=== PATIENT | female | born 1990 | race Caucasian/White ===

== ENCOUNTER 2020-02-08 14:44 | Emergency (ER) | payer OTHER, SELFPAY ==
[~2020-02-08] VITALS: Ht 167.6 cm; Wt 72.6 kg
[2020-02-08 14:53] VITALS: BP 135/89
--- NOTE | 2020-02-08 15:25 | NUR ---
Dr. Nava is evaluating the patient in the tent.
[2020-02-08] MEDS ORDERED: NACL 0.9% 500 ML IV ONE (15:27)
--- NOTE | 2020-02-08 15:28 | NUR ---
Patient transferred to bed 9 for further care. RN evaluating patient at bedside.
--- NOTE | 2020-02-08 15:28 | NUR ---
PT IS BEING TAKEN TO ROOM 9.
[2020-02-08] MEDS ORDERED: ONDANSETRON 4 MG/2 ML VIAL IVP ONE (15:30)
--- NOTE | 2020-02-08 15:30 | NUR ---
29 y/f presents for nonproductive cough x 5 day, c n/v. PT REPORTS WORSENING NAUSEA AFTER MEALS. Pt also reports nasal congestion. DENIES SORE THROAT. Pt denies sob, fever, denies + covid exposure, denies loss of taste or smell pmh- denies rx- denies nkda
--- NOTE | 2020-02-08 15:45 | NUR ---
STAT LABS DRAWN AND GIVEN TO PHLEB.
--- NOTE | 2020-02-08 15:50 | NUR ---
PT TAKEN TO XR VIA WHEELCHAIR.
[2020-02-08 15:59] LABS: BASOPHILS # (AUTO) 0.1 K/uL (0.00-0.22); BASOPHILS % (AUTO) 0.9 % (0.0-2.0); EOSINOPHILS # (AUTO) 0.2 K/uL (0-0.4); EOSINOPHILS % (AUTO) 2.1 % (0.0-4.0); HEMATOCRIT 41.6 % (36-48); HEMOGLOBIN 14.3 g/dL (12.0-16.0); LYMPHOCYTES # (AUTO) 4.1 K/uL (2.5-16.5); LYMPHOCYTES % (AUTO) 49.1 % (20.5-51.1); MEAN CORPUSCULAR HEMOGLOBIN 31 pg (27-31); MEAN CORPUSCULAR HGB CONC 34 g/dL (33-37); MEAN CORPUSCULAR VOLUME 89.1 fL (80-94); MONOCYTES # (AUTO) 0.7 K/uL (0.8-1.0); MONOCYTES % (AUTO) 8.2 % (1.7-9.3); NEUTROPHILS # (AUTO) 3.3 K/uL (1.8-7.7); NEUTROPHILS % (AUTO) 39.7 % (42.2-75.2); PLATELET COUNT (AUTO) 352 K/uL (140-450); RED BLOOD CELL COUNT(AUTO) 4.67 MIL/uL (4.20-5.40); RED CELL DISTRIBUTION WIDTH 13.5 % (11.6-13.7); WHITE BLOOD COUNT (AUTO) 8.3 K/uL (4.8-10.8)
[2020-02-08 16:22] LABS: ALBUMIN 4.3 g/dL (3.4-5.0); ANION GAP 20.5 (8-16); CREATININE 0.8 mg/dL (0.6-1.3); POTASSIUM 3.5 mmol/L (3.5-5.1); TOTAL BILIRUBIN 0.3 mg/dL (0.0-1.0)
[2020-02-08 16:51] VITALS: BP 135/89
--- NOTE | 2020-02-08 16:52 | NUR ---
Patient discharged with v/s stable. Written and verbal after care instructions given and explained. Patient alert, oriented and verbalized understanding of instructions. Ambulatory with steady gait. All questions addressed prior to discharge. ID band removed. Patient advised to follow up with PMD. Rx of MIRALAX AND MINERAL OIL given. Patient educated on indication of medication including possible reaction and side effects. Opportunity to ask questions provided and answered.
== END 2020-02-08 16:52 | disposition home or self-care (01) ==
LOC: MED 14:44
DX: R10.9 Unspecified abdominal pain (principal); R05 Cough; J02.9 Acute pharyngitis, unspecified; R11.0 Nausea; R03.0 Elevated blood-pressure reading, without diagnosis of hypertension
CPT/HCPCS: 36415; 74022; 80053; 81002; 81025; 83690; 85025; 96361; 96374; 99284; J2405; J7030

== ENCOUNTER 2020-11-28 13:29 | Emergency (ER) | payer OTHER, SELFPAY ==
[~2020-11-28] VITALS: Ht 167.6 cm; Wt 94.3 kg
--- NOTE | 2020-11-28 13:57 | NUR ---
Patient to restroom for urine sample.
[2020-11-28 14:02] VITALS: BP 158/85
--- NOTE | 2020-11-28 14:09 | NUR ---
Pt to lobby for available bed.
--- NOTE | 2020-11-28 14:20 | NUR ---
PT TAKEN TO BED 11.
--- NOTE | 2020-11-28 14:35 | NUR ---
30 Y/O F BIB SELF FROM HOME, PATIENT PRESENTS TO ED WITH C/O LOWER BACK PAIN, PAIN INCREASES WITH SITTING TO STANDING FOR 1 MO. PT STATES PAIN HAS WORSENED. DENIES N/V/D; SKIN IS PINK/WARM/DRY; AAOX4 WITH EVEN AND STEADY GAIT; LUNGS CLEAR BL; HR EVEN AND REGULAR; PT DENIES ANY FEVER, CP, SOB, OR COUGH AT THIS TIME; PATIENT STATES PAIN OF 7/10 AT THIS TIME; VSS; PATIENT POSITIONED FOR COMFORT; HOB ELEVATED; BEDRAILS UP X2; BED DOWN. ER MD MADE AWARE OF PT STATUS. DENIES FALL, LOC, INJURY OR SYNCOPE. PMH: DENIES [facility] MED: DENIES
[2020-11-28] MEDS ORDERED: IBUP-1842 PO (15:39)
[2020-11-28 15:49] VITALS: BP 158/85
== END 2020-11-28 15:51 | disposition home or self-care (01) ==
LOC: MED 13:29
DX: M54.5 Low back pain (principal)
CPT/HCPCS: 72100; 81025; 99283